=== PATIENT | female | born 1965 | race Caucasian/White ===

== ENCOUNTER → 2017-06-04 | Outpatient (CLI) | payer OTHER ==
--- NOTE | 2017-06-04 18:11 | XR ---
EXAMINATION TYPE: XR knee complete LT DATE OF EXAM: 06/04/2017 COMPARISON: NONE HISTORY: Foot pain TECHNIQUE: 3 views FINDINGS: I see no fracture nor dislocation. Joint spaces are normal. There is minor spurring of the patella. There is no sign of knee joint effusion. IMPRESSION: Mild spurring. Otherwise negative left knee exam.
--- NOTE | 2017-06-04 18:13 | XR ---
EXAMINATION TYPE: XR ankle complete LT DATE OF EXAM: 06/04/2017 COMPARISON: NONE HISTORY: Ankle pain TECHNIQUE: 3 views FINDINGS: I see no fracture nor dislocation. Ankle mortise is anatomic. Joint spaces are normal. IMPRESSION: Negative left ankle exam
--- NOTE | 2017-06-04 18:14 | XR ---
EXAMINATION TYPE: XR foot complete LT DATE OF EXAM: 06/04/2017 COMPARISON: NONE HISTORY: Pain TECHNIQUE: 3 views FINDINGS: I see no fracture nor dislocation. Metatarsals are intact. There are no erosions. Joint spa angelina are fairly normal. IMPRESSION: Negative left foot exam
== END | disposition home or self-care (01) ==
LOC: RADXRMAIN 17:18
PROVIDERS: ATTEND Family Medicine
DX: M77.9 Enthesopathy, unspecified (principal); S90.02XA Contusion of left ankle, initial encounter

== ENCOUNTER → 2018-12-23 | Outpatient (CLI) | payer OTHER ==
[2018-12-23 11:03] LABS: ALT 19 U/L (9-52); AST 20 U/L (14-36); African American GFR (CKD) >90 (>60 ml/min/1.73 sqM); Albumin 4.3 g/dL (3.5-5.0); Alkaline Phosphatase 75 U/L (38-126); Anion Gap 8 mmol/L; Blood Urea Nitrogen 12 mg/dL (7-17); Calcium 9.7 mg/dL (8.4-10.2); Carbon Dioxide 27 mmol/L (22-30); Chloride 106 mmol/L (98-107); Glucose 92 mg/dL (74-99); Potassium 4.8 mmol/L (3.5-5.1); Sodium 141 mmol/L (137-145); Total Bilirubin 0.5 mg/dL (0.2-1.3)
[2018-12-23 11:04] LABS: Appearance,Urine Clear (Clear); Bilirubin,Urine Negative (Negative); Blood,Urine Negative (Negative); Color,Urine Light Yellow; Glucose,Urine (UA) Negative (Negative); Ketones,Urine Negative (Negative); Leukocyte Esterase,Urine Negative (Negative); Nitrite,Urine Negative (Negative); Protein,Urine Negative (Negative); Specific Gravity,Urine 1.003 (1.001-1.035); Urobilinogen,Urine <2.0 mg/dL (<2.0)
[2018-12-23 11:07] LABS: INR 0.9 (<1.2); Partial Thromboplastin Time 25.6 sec (22.0-30.0); Prothrombin Time 9.7 sec (9.0-12.0)
[2018-12-23 11:09] LABS: HCT 48.6 % (34.0-46.0); HGB 15.7 gm/dL (11.4-16.0); MCH 30.1 pg (25.0-35.0); MCHC 32.4 g/dL (31.0-37.0); Mean Platelet Volume 10.9; Platelet Count 186 k/uL (150-450); RBC 5.22 m/uL (3.80-5.40); RDW 14.6 % (11.5-15.5)
== END | disposition home or self-care (01) ==
LOC: LABPAT 09:55
PROVIDERS: ATTEND Orthopaedic Surgery
DX: Z01.812 Encounter for preprocedural laboratory examination (principal); Z01.818 Encounter for other preprocedural examination; M17.11 Unilateral primary osteoarthritis, right knee
CPT/HCPCS: 36415; 80053; 81003; 85027; 85610; 85730; 87070; 93005

== ENCOUNTER 2019-01-06 12:12 | Day surgery (SDC) | payer OTHER ==
[~2019-01-06 12:12] MED LIST: DEXAMETHASONE SOD PHOSPHATE 10 MG/ML 1 ML VIAL IV ONE; GABAPENTIN 300 MG CAP PO ONE; HYDROmorphone 0.5 MG/0.5 ML SYRINGE IVP PRN; LIDOCAINE 1% 20 ML VIAL (10MG/ML) FOR IV START INTRADERMA PRN; MELOXICAM 7.5 MG TAB PO ONE; MIDAZOLAM 2 MG/2 ML VIAL IV PRN; ONDANSETRON 4 MG/2 ML VIAL IVP ONE; SCOPOLAMINE 1.5MG/72HR PATCH TRANSDERM ONE; TRANEXAMIC ACID 1,000 MG in SODIUM CHLORIDE 0.9% 100 ML IVPB ONE
[2019-01-06] MEDS: LACTATED RINGERS 1,000 ML IV SCH (13:07)
[2019-01-06] MEDS ORDERED: MIDAZOLAM (PF) 2 MG/2 ML VIAL IVP ONE (13:26)
[2019-01-06] MEDS ORDERED: HYDROcodone/APAP 5-325MG 1 EACH TAB PO PRN (13:34)
[2019-01-06] MEDS ORDERED: DIAZEPAM 5 MG TAB PO PRN (13:34)
[2019-01-06] MEDS ORDERED: ONDANSETRON 4 MG/2 ML VIAL IVP PRN (13:34)
[2019-01-06] MEDS ORDERED: NA PHOS,M-B/NA PHOS,DI-BA 133 ML ENEMA RECTAL PRN (13:34)
[2019-01-06] MEDS ORDERED: BISACODYL 10 MG SUPP RECTAL PRN (13:34)
[2019-01-06] MEDS ORDERED: MAGNESIUM HYDROXIDE 2,400 MG/10 ML CUP PO PRN (13:34)
[2019-01-06] MEDS ORDERED: HYDROmorphone 0.5 MG/0.5 ML SYRINGE IVP PRN ×2 (13:34)
[2019-01-06] MEDS ORDERED: hydrOXYzine PAMOATE 25 MG CAP PO PRN (13:34)
[2019-01-06] MEDS ORDERED: HYDROmorphone 1 MG/ML 1 ML SYRINGE IVP PRN (13:34)
[2019-01-06] MEDS ORDERED: NALOXONE 0.4 MG/ML 1 ML VIAL IV PRN ×2 (13:34→15:25)
[2019-01-06] MEDS ORDERED: ACETAMINOPHEN TAB 500 MG TAB PO ONE (13:46)
[2019-01-06] MEDS ORDERED: TRANEXAMIC ACID 1,000 MG/10 ML VIAL ONE (13:50)
[2019-01-06] MEDS ORDERED: PROPOFOL 10 MG/ML 20 ML VIAL IV ONE (13:50)
[2019-01-06] MEDS ORDERED: MIDAZOLAM 2 MG/2 ML VIAL ONE (13:50)
[2019-01-06] MEDS ORDERED: PHENYLEPHRINE-0.9% NACL SYG 1 MG/10 ML SYRINGE ONE (13:50)
[2019-01-06] MEDS ORDERED: fentaNYL (PF) 50 MCG/ML 2 ML AMP ONE (13:50)
[2019-01-06] MEDS ORDERED: SODIUM CHLORIDE 0.9% 100 ML BAG ONE (13:50)
[2019-01-06] MEDS ORDERED: ePHEDrine SULFATE/0.9% NACL/PF 50 MG/5 ML SYRINGE IV ONE (13:50)
[2019-01-06] MEDS: ROPIVACAINE 246.25 MG, EPINEPHrine 0.5 MG, KETOROLAC 30 MG, cloNIDine HCL/PF 80 MCG, WA... MISCELLANE ONE ×10 (14:26→14:58)
[2019-01-06] MEDS ORDERED: ceFAZolin 3,000 MG in SODIUM CHLORIDE 0.9% IRRIGATIO 3,000 ML IRRIGATION ONE (14:26)
--- NOTE | 2019-01-06 15:09 | P.OP ---
Date of Procedure: 01/06/19 Preoperative Diagnosis: Severe osteoarthritis right knee Postoperative Diagnosis: Severe osteoarthritis right knee Procedure(s) Performed: Right total knee arthroplasty with Visionaire patient specific knee guides Implants: Avery and Nephew Journey II CR Oxinium cruciate retaining femoral component size 5, right Avery [employer] Nephew Journey right nonporous tibial baseplate size 3 Avery [employer] Nephew Journey II, XLPE Deep Dished articular insert, size 9 mm, Size 3- 4 right Avery [employer]hew Journey BCS resurfacing oval patellar component, 29 mm All components were cemented using Palacos R bone cement. Visionaire patient specific guides The articulation is Oxinium on polyethylene. Anesthesia: spinal Surgeon: Fam Amezquita Hand Cigar Making Supervisor #1: Karmen Palacio Estimated Blood Loss (ml): 50 Pathology: other (Bone cartilage) Condition: stable Disposition: PACU Indications for Procedure: After failure of conservative treatment we discussed the surgical and nonsurgical treatment options at length. Patient wishes to proceed with a total knee arthroplasty. Complications specific to this procedure were discussed at length, including but not limited to infection, bleeding, stiffness, and nerve injury. Patient is aware of all these complications and informed consent was obtained Operative Findings: The operative findings are consistent with severe osteoarthritis of the right knee Description of Procedure: Patient was seen in the preoperative area consent was reviewed and operative site was marked with a skin marker. An adductor canal pain catheter was placed by anesthesia in the preoperative area. Patient was then brought to the operating room and given preoperative antibiotics intravenously. A spinal anesthetic was administered by the anesthesia department. A tourniquet was placed on the upper thigh and the lower extremity was prepped and draped in usual sterile fashion. A gram of transexamic acid was given. A universal timeout was then performed which confirmed the patient's name, surgical site, ALLERGIES, and consent. The lower extremity was then exsanguinated and tourniquet was inflated to 250 mmHg. A standard and anterior midline approach to the knee was performed. The skin and subcutaneous tissue was dissected down to the patellar tendon. A medial parapatellar arthrotomy was then performed. The knee was then extended, the patellar was everted, and the knee was again flexed. Anterior horns of both menisci were excised, and a release was performed to the posterior medial aspect of the knee. On gross visual inspection, there was complete loss of articular cartilage in the medial and patellofemoral joint spaces. There was also significant cartilage damage in the lateral compartment. There were multiple periarticular osteophytes. The patient specific guide was placed on the distal femur, and pinned in place. Using the patient specific guide, the distal femoral cut was performed. The cutting block was then removed and the cut was checked for flatness. The appropriate 5-in-1 cutting block was then pinned in place through the holes that were drilled through the patient specific guide. The anterior condyles were cut without notching. The posterior and chamfer cuts were performed while protecting the collateral ligaments. The cutting block was then removed. Attention was then directed to the tibia. The remaining ACL was removed with a Ronguer, and the tibia was then gently subluxed forward with a large bent knee retractor. Any remaining menisci was excised. The posterior lateral corner was cauterized in order to cauterize the lateral geniculate artery. The patient specific guide for the tibia was then placed and was held in place with pins. Pinholes were then placed for rotation of the tibial component as well. Proximal tibia was then cut and sized. Next trials were then placed with the appropriate-sized insert. The knee was able to fully extend and flex to 130 and was stable throughout all range of motion. The knee was then extended, patella everted. Patella was then measured, and then using an osteotomy guide, the patella was cut at the appropriate level. The patella was then measured and drilled and the patella trial was then placed. The knee was then taken through range of motion with the patella trial and the patella tracked normally. The knee was then extended patella trial was then removed and the patella was everted. Knee was then flexed and lug holes were drilled through the femoral trial and the femoral trial was then removed. The tibial was then exposed, and the tibial broach guide was then pinned in place after it was set for the appropriate rotation to allow for the most coverage without overhang. The tibia was then reamed and broached. The cut surfaces of bone were then irrigated with pulsatile lavage. The posterior structures were injected with the ropivacaine solution. The knee was also irrigated with Irrisept solution. The components were then opened, the cement was mixed, and the components were then cemented in place. The cement was allowed to harden with the knee in full extension. While the cement was hardening, the remaining soft tissues were then injected with a ropivacaine solution, which consisted of 246.25 mg of ropivacaine, 0.5 mg of epinephrine, 30 mg of Toradol, 80 g of clonidine, and 48.45 mL of sterile water, for a total of 100 mL of fluid injected. After the cemented hardened. The tourniquet was released, and hemostasis was obtained. A second gram of transexamic acid was given. The knee was again irrigated. The knee was again taken through range of motion and found to be stable throughout all range of motion of 0-130, and the patella tracked normally. The fascia was then closed with #2 strata fix suture. The subcutaneous tissue was closed with 3-0 Vicryl and 3-0 strata fix. Dermabond glue was used for the skin and placed with the knee in flexion. The patient was placed in a sterile silver dressing. Patient was then transferred to recovery room in stable condition. The health care legal assistant PATRICK Lopez was required due the complexity surgery and the need for a skilled campus administrative assistant. She assisted in positioning, draping, retraction, and closure of the wound.
--- NOTE | 2019-01-06 15:27 | P.ANPRN ---
Procedure Note - Anesthesia - Nerve Block Performed Right Adductor Canal Infusion Time Out Performed: Yes Date of Procedure: 01/06/19 Procedure Start Time: 13:25 Procedure Stop Time: 13:36 Location of Patient Procedure: PreOp Indication: Acute Post-Operative Pain, Analgesia, Requested by Surgeon Sedation Type: Sedate with meaningful contact maintained Preparation: Sterile Prep, Sterile Dressing Position: Supine Catheter: Indwelling Needle Types: Pajunk Needle Gauge: 20 Ultrasound used to visualize needle placement: Yes Ultrasound used to observe medication spread: Yes Injectate: 0.5% Ropivacaine (see comment for volume) (20cc) Blood Aspirated: No Pain Paresthesia on Injection Noted: No Resistance on Injection: Normal Image Stored and Saved: Yes
[2019-01-06] MEDS ORDERED: LACTATED RINGERS 1,000 ML IV ONE (15:31)
[2019-01-06] MEDS ORDERED: ROPIVACAINE 0.2%-NS ON-Q PUMP 1,090 MG, EMPTY PAIN BALL 1 EACH MISCELLANE PRN (15:56)
--- NOTE | 2019-01-06 16:24 | XR ---
EXAMINATION TYPE: XR knee limited RT DATE OF EXAM: 01/06/2019 CLINICAL HISTORY: Postoperative evaluation Two views of the right knee are submitted. Identified are changes of total knee arthroplasty with femoral and tibial components appearing well seated. Postsurgical soft tissue changes are noted. Alignment is anatomic.
[2019-01-06 17:27] VITALS: BMI 28.3
[2019-01-06] MEDS: SODIUM CHLORIDE 0.9% 1,000 ML IV SCH (17:31)
[2019-01-06] MEDS: ASPIRIN 325 MG TAB PO SCH (20:48)
[2019-01-06] MEDS: HYDROcodone/APAP 5-325MG 1 EACH TAB PO PRN (20:50)
[2019-01-06] MEDS ORDERED: SENNOSIDES-DOCUSATE SODIUM 1 EACH TAB PO SCH (21:00)
[2019-01-07] MEDS: HYDROcodone/APAP 5-325MG 1 EACH TAB PO PRN (05:17)
[2019-01-07] MEDS: SODIUM CHLORIDE 0.9% 1,000 ML IV SCH (05:24)
[2019-01-07] MEDS: LACTATED RINGERS 1,000 ML IV SCH (05:45)
[2019-01-07 07:09] VITALS: BP 107/70; PULSE 53; RESP 16; TEMP 97.7
[2019-01-07] MEDS: ASPIRIN 325 MG TAB PO SCH (07:14)
[2019-01-07 07:31] LABS: Basophils % (A) 0 %; Eosinophils % (A) 0 %; HCT 43.7 % (34.0-46.0); HGB 14.2 gm/dL (11.4-16.0); Lymphocytes # (A) 2.4 k/uL (1.0-4.8); Lymphocytes % (A) 14 %; MCH 30.2 pg (25.0-35.0); MCHC 32.5 g/dL (31.0-37.0); MCV 92.9 fL (80.0-100.0); Mean Platelet Volume 9.8; Monocytes # (A) 0.8 k/uL (0-1.0); Monocytes % (A) 5 %; Neutrophils # (A) 13.5 k/uL (1.3-7.7); Neutrophils % (A) 80 %; Platelet Count 161 k/uL (150-450); RBC 4.71 m/uL (3.80-5.40); RDW 12.7 % (11.5-15.5); WBC 16.8 k/uL (3.8-10.6)
--- NOTE | 2019-01-07 07:43 | P.PN ---
Progress Note - Text Progress Note Date: 01/07/19 POD 1 right TKR, doing well. pain on the back of the knee, VAS 3/10. able to ambulate. Dressing was resecured this morning. no erythem or fluctuance, no parasthesia reported. will likely be d/c home today.
--- NOTE | 2019-01-07 08:12 | P.DS ---
Providers Expected date of discharge: 01/07/19 Attending physician: Fam Amezquita Consults: 01/06/19 13:34 Consult Physician Routine Consulting Provider: Mel Buitrago Consult Reason/Comments: medical management Do you want consulting provider notified?: Yes Primary care physician: Jimmy [place] - Discharge Diagnosis(es) (1) Primary localized osteoarthritis of right knee Current Visit: Yes Status: Acute (2) Status post right knee replacement Current Visit: Yes Status: Acute Hospital Course: This is a pleasant 53-year-old female last seen in our office with complaints of right knee pain. Patient has known history of degenerative arthritis of the right knee and presented to discuss options. After discussion and consideration, patient elected to proceed with a total knee arthroplasty of the right knee. The patient was seen preoperatively and medically cleared for surgery by her primary care physician. The patient was admitted to [facility] and underwent right total knee arthroplasty on 01/06/[address] Fam Amezquita. The procedure was performed without complications or sequelae. The patient has done well postoperatively. The patient was seen and evaluated at bedside today and denies any new complai nts. Pain is reasonably controlled. Dressing is clean dry and intact. Incision looks fine with no erythema or active drainage. Calf is soft and nontender. The patient has full foot and ankle motion without difficulty. Patient's right lower extremity is neurovascular intact. Patient is orthopedically stable for discharge to home today. Pertinent Studies: Laboratory Tests 01/07/19 06:51 WBC 16.8 H RBC 4.71 Hgb 14.2 Hct 43.7 Neutrophils # 13.5 H Patient Condition at Discharge: Stable Plan - Discharge Summary Discharge Rx Participant: Yes New Discharge Prescriptions: New Aspirin 325 mg PO BID #60 tab Sennosides [Senokot] 1 tab PO BID #60 tablet HYDROcodone/APAP 7.5-325MG [[place] 7.5-325] 1 - 2 tab PO Q4-6H PRN #50 tab PRN Reason: Pain No Action clonazePAM [KlonoPIN] 1 mg PO BID@1500,2100 clonazePAM [KlonoPIN] 0.5 mg PO DAILY@0700 Fluticasone Nasal [place] [Flonase Nasal [place]] 2 spray EA NOSTRIL BID PRN PRN Reason: Allergy Symptoms Sertraline [Zoloft] 50 mg PO BID@0700,1500 Omeprazole [PriLOSEC] 20 mg PO DAILY Hydrochlorothiazide 25 mg PO DAILY Levothyroxine Sodium [Synthroid] 75 mcg PO DAILY Cholecalciferol (Vitamin D3) [Vitamin D3] 2,000 unit PO DAILY Acetaminophen [Tylenol Extra Strength] 500 mg PO DIRECTED PRN PRN Reason: Pain Discharge Medication List Fluticasone Nasal [place] [Flonase Nasal [place]] 2 spray EA NOSTRIL BID PRN 01/02/16 [History] Sertraline [Zoloft] 50 mg PO BID@0700,1500 01/02/16 [History] clonazePAM [KlonoPIN] 0.5 mg PO DAILY@0700 01/02/16 [History] clonazePAM [KlonoPIN] 1 mg PO BID@1500,2100 01/02/16 [History] Acetaminophen [Tylenol Extra Strength] 500 mg PO DIRECTED PRN 01/02/19 [History] Cholecalciferol (Vitamin D3) [Vitamin D3] 2,000 unit PO DAILY 01/02/19 [History] Hydrochlorothiazide 25 mg PO DAILY 01/02/19 [History] Levothyroxine Sodium [Synthroid] 75 mcg PO DAILY 01/02/19 [History] Omeprazole [PriLOSEC] 20 mg PO DAILY 01/02/19 [History] Aspirin 325 mg PO BID #60 tab 01/06/19 [Rx] Sennosides [Senokot] 1 tab PO BID #60 tablet 01/06/19 [Rx] HYDROcodone/APAP 7.5-325MG [[place] 7.5-325] 1 - 2 tab PO Q4-6H PRN #50 tab 01/07/19 [Rx] Follow up Appointment(s)/Referral(s): Jimmy Coronel MD [Primary Care Provider] - 1 Week Fam Amezquita DO [Doctor of Osteopathic Medicine] - 2 Weeks Ambulatory/Diagnostic Orders: Continuous Passive Motion (CPM) Machine [DME.AMB1] Time Frame: 3 Weeks, Location: None Selected Activity/Diet/Wound Care/Special Instructions: Weightbearing as tolerated with a walker. CPM 5-6h daily. Leave dressing intact. May be removed by home care nurse or by patient in 10 days. May shower with dressing on. Recommend use of compression stockings daily for at least 2 weeks during the day to help prevent swelling and blood clots. May remove at night before sleeping. Please follow up with [facility] and call with any questions or concerns, . Discharge Disposition: HOME WITH HOME HEALTH SERVICES
[2019-01-07] MEDS ORDERED: MELOXICAM 7.5 MG TAB PO SCH (09:00)
== END 2019-01-07 13:58 | disposition home health service (06) ==
LOC: OR 12:12 → 4SSUR 16:27 → OR 01-07 13:58
PROVIDERS: ATTEND Orthopaedic Surgery
DX: M17.0 Bilateral primary osteoarthritis of knee (principal); M25.761 Osteophyte, right knee; I10 Essential (primary) hypertension; E07.9 Disorder of thyroid, unspecified; K21.9 Gastro-esophageal reflux disease without esophagitis; F17.210 Nicotine dependence, cigarettes, uncomplicated; F32.9 Major depressive disorder, single episode, unspecified; F41.9 Anxiety disorder, unspecified; Z90.710 Acquired absence of both cervix and uterus; Z79.1 Long term (current) use of non-steroidal anti-inflammatories (NSAID); Z79.890 Hormone replacement therapy; Z79.899 Other long term (current) drug therapy; Z91.048 Other nonmedicinal substance allergy status
CPT/HCPCS: 97161; 64448; 76942; 85025; 88300; 73560; 27447; C1713; C1776; J2250 ×2; J0171; J1100; J0690 ×3; J2405; J3010; J1885; J2795 ×2; J2370; J2704; J0735

== ENCOUNTER → 2021-11-07 | Outpatient (CLI) | payer OTHER ==
--- NOTE | 2021-11-08 19:43 | MM ---
Reason for Exam: Screening (asymptomatic). Last mammogram was performed 1 year(s) and 3 month(s) ago. Patient History: Menarche at age 13. First Full-Term at age 27. Left ovary removed at age 45. Right ovary removed at age 45. Hysterectomy at age 45. Postmenopausal. Maternal aunt had breast cancer, right, at or over age 50. Risk Values: Allison 5 year model risk: 1.3%. NCI Lifetime model risk: 8.0%. Prior Study Comparison: 04/25/2001 Bilateral Screening Mammogram, [facility]. 05/15/2001 Right Special View Mammogram, [facility]. 11/12/2017 Bilateral MG 3D screening mammo w/cad, [facility]. 09/01/2020 Bilateral MG screening mammo w CAD - 2, [facility]. Tissue Density: The breast tissue is heterogeneously dense. This may lower the sensitivity of mammography. Findings: Analyzed By CAD. Solitary benign oil cyst calcification on the right redemonstrated. There is no suspicious group of microcalcifications or new suspicious mass in either breast. Overall Assessment: Negative, BI-RAD 1 Management: Screening Mammogram of both breasts in 1 year. 1. Patient should continue monthly self breast exams. 2. A clinical breast exam by your physician is recommended on an annual basis. 3. This exam should not preclude additional follow-up of suspicious palpable abnormalities. Electronically signed and approved by: Jb Sheffield M.D. Radiologist
== END | disposition home or self-care (01) ==
LOC: RADMAMWWP 08:45
PROVIDERS: ATTEND Family Medicine
DX: Z12.31 Encounter for screening mammogram for malignant neoplasm of breast (principal)
CPT/HCPCS: 77067

== ENCOUNTER 2024-02-10 13:15 | Emergency (ER) | payer OTHER ==
--- NOTE | 2024-02-10 13:39 | ED ---
Lower Extremity Injury HPI - General Source: patient, RN notes reviewed Mode of arrival: ambulatory Limitations: no limitations <Jennifer Alvarado - Last Filed: 02/10/24 13:47> <Terry Inman - Last Filed: 02/10/24 15:11> - General Chief Complaint: Extremity Injury, Lower Stated Complaint: fall,knee pain Time Seen by Provider: 02/10/24 13:35 - History of Present Illness Initial Comments: Quick Note: This is a 58 year old female who presents to the emergency department for a fall. She slipped in the kitchen this morning and injured her right leg. Currently has pain over the right knee and right foot. She is still able to ambulate. Denies hitting her head. (Jennifer Alvarado) 58 yo female presenting with right knee and right second toe injury. Patient had slipped in her kitchen on a greasy floor. There was no head or neck trauma. Main complaint is right second toe pain. (Terry Inman) - Related Data Home Medications Medication Instructions Recorded Confirmed Fluticasone Nasal [place] [Flonase 2 spray EA NOSTRIL BID PRN 01/02/16 01/06/19 Nasal [place]] Sertraline [Zoloft] 50 mg PO BID@0700,1500 01/02/16 01/06/19 clonazePAM [KlonoPIN] 0.5 mg PO DAILY@0700 01/02/16 01/06/19 clonazePAM [KlonoPIN] 1 mg PO BID@1500,2100 01/02/16 01/06/19 Acetaminophen [Tylenol Extra 500 mg PO DIRECTED PRN 01/02/19 01/06/19 Strength] Cholecalciferol (Vitamin D3) 2,000 unit PO DAILY 01/02/19 01/06/19 [Vitamin D3] Levothyroxine Sodium [Synthroid] 75 mcg PO DAILY 01/02/19 01/06/19 Omeprazole [PriLOSEC] 20 mg PO DAILY 01/02/19 01/06/19 hydroCHLOROthiazide 25 mg PO DAILY 01/02/19 01/06/19 Previous Rx's Medication Instructions Recorded Aspirin 325 mg PO BID #60 tab 01/06/19 Sennosides [Senokot] 1 tab PO BID #60 tablet 01/06/19 HYDROcodone/APAP 7.5-325MG [[place] 1 - 2 tab PO Q4-6H PRN #50 tab 01/07/19 7.5-325] Allergies Allergy/AdvReac Type Severity Reaction Status Date / Time adhesive Allergy Unknown blisters, Uncoded 02/10/24 13:35 possibly caused by tegaderm clear dressing orange dye Allergy Unknown Rash/Hives Uncoded 02/10/24 13:35 Review of Systems ROS Other: All systems not noted in ROS Statement are negative. <Jennifer Alvarado - Last Filed: 02/10/24 13:47> ROS Other: All systems not noted in ROS Statement are negative. <Terry Inman - Last Filed: 02/10/24 15:11> ROS Statement: Those systems with pertinent positive or pertinent negative responses have been documented in the HPI. Past Medical History Past Medical History: Thyroid Disorder History of Any Multi-Drug Resistant Organisms: None Reported Past Surgical History: Joint Replacement, Orthopedic Surgery Additional Past Surgical History / Comment(s): thryroidectomy Past Psychological History: Anxiety Smoking Status: Current every day smoker Past Alcohol Use History: None Reported Past Drug Use History: None Reported <Jennifer Alvarado - Last Filed: 02/10/24 13:47> General Exam Limitations: no limitations <Jennifer Alvarado - Last Filed: 02/10/24 13:47> General appearance: alert, in no apparent distress Head exam: Present: atraumatic, normocephalic Eye exam: Present: normal appearance, PERRL ENT exam: Present: normal exam Neck exam: Present: normal inspection. Absent: tenderness, meningismus Respiratory exam: Present: normal lung sounds bilaterally. Absent: respiratory distress, wheezes Cardiovascular Exam: Present: regular rate, normal rhythm GI/Abdominal exam: Present: soft. Absent: distended, tenderness, guarding Extremities exam: Present: other (Ecchymosis at the base of the second toe right foot, suspect DIP dislocation) <Terry Inman - Last Filed: 02/10/24 15:11> - General Exam Comments Initial Comments: Visual Physical Exam Vital signs reviewed General: Well-appearing, nontoxic, no acute distress. Head: Normocephalic, atraumatic Eyes: PERRLA, EOMI ENT: Airway patent Chest: Nonlabored breathing Skin: No visual rash, normal skin tone Neuro: Alert and oriented 3 Musculoskeletal: No gross abnormalities (Jennifer Alvarado) Course Vital Signs 02/10/24 13:33 Temperature 98.4 F Pulse Rate 63 Respiratory 20 Rate O2 Sat by Pulse 97 Oximetry Procedures - Nerve Block Consent Obtained: verbal consent Local Anesthetic Used: Lidocaine 1% Amount of anesthesia used: 3 Side: right Nerve Blocks: digital Procedure Successful: Yes Complications: none Patient Tolerated Procedure: well - Orthopedic Joint Reduction Joint #1 Consent Obtained: verbal consent Side: right Joint Reduction Location: toe Analgesia: digital block Local Anesthetic Used: Lidocaine 1% Amount of Anesthetic Used (mLs): 3 Technique Used: traction/counter-traction Post-Reduction Neuro Exam: intact Post-Reduction Vascular Exam: intact Post Reduction X-Ray Obtained: No Patient Tolerated Procedure: well <Terry Inman - Last Filed: 02/10/24 15:11> Medical Decision Making <Jennifer Alvarado - Last Filed: 02/10/24 13:47> <Terry Inman - Last Filed: 02/10/24 15:11> - Medical Decision Making I performed the QuickNote portion of this chart. Signed Jennifer Alvarado PA-C. (Jennifer Alvarado) Was pt. sent in by a medical professional or institution (PATRICK Fuller, SILVERING DEPARTMENT SUPERVISOR, urgent care, hospital, or group home...) When possible be specific @ -No Did you speak to anyone other than the patient for history (EMS, parent, family, police, friend...)? What history was obtained from this source @ -No Did you review nursing and triage notes (agree or disagree)? Why? @ -I reviewed and agree with nursing and triage notes Were old charts reviewed (outside hosp., previous admission, EMS record, old EKG, old radiological studies, urgent care reports/EKG's, group home records)? Report findings @ -No old charts were reviewed Differential Musculoskeletal Muscular strain, contusion, ligament sprain, fracture, arthritis, septic arthritis, bursitis, cellulitis, muscle spasm, nerve compression, DVT, arterial occlusion, herpes zoster, electrolyte abnormality, tumor.... This is not meant to be in all inclusive list EKG interpreted by me (3pts min.). @ -As above X-rays interpreted by me (1pt min.). @X-ray of the right knee is negative for displaced fracture, x-ray of the right foot shows dislocation of the distal phalanx second toe. CT interpreted by me (1pt min.). @ -None done U/S interpreted by me (1pt. min.). @ -None done What testing was considered but not performed or refused? (CT, X-rays, U/S, labs)? Why? @ -None What meds were considered but not given or refused? Why? @ -None Did you discuss the management of the patient with other professionals (professionals i.e. , PA, SILVERING DEPARTMENT SUPERVISOR, lab, RT, psych nurse, social media content specialist, promotion officer, teacher, medical information officer, heel caser)? Give summary @ -No Was smoking cessation discussed for >3mins.? @ -No Was critical care preformed (if so, how long)? @ -No Were there social determinants of health that impacted care today? How? (Homelessness, low income, unemployed, alcoholism, drug addiction, t ransportation, low edu. Level, literacy, decrease access to med. care, longterm, rehab)? @ -No Was there de-escalation of care discussed even if they declined (Discuss DNR or withdrawal of care, Hospice)? DNR status @ -No What co-morbidities impacted this encounter? (DM, HTN, Smoking, COPD, CAD, Cancer, CVA, ARF, Chemo, Hep., AIDS, mental health diagnosis, sleep apnea, morbid obesity)? @ -None Was patient admitted / discharged? Hospital course, mention meds given and route, prescriptions, significant lab abnormalities, going to OR and other pertinent info. @ -[58-year-old female with right foot injury, right knee injury, x-ray of the right knee is negative for displaced fracture or dislocation, x-ray of the right foot shows a subtle dislocation of the distal phalanx second toe right foot. This is reduced after digital block. Patient stable for discharge at this time. Undiagnosed new problem with uncertain prognosis? @ -No Drug Therapy requiring intensive monitoring for toxicity (Heparin, Nitro, Insulin, Cardizem)? @ -No Were any procedures done? @Yes, digital block, toe dislocation reduction Diagnosis/symptom? @ -[Toe dislocation Acute, or Chronic, or Acute on Chronic? @ -Acute Uncomplicated (without systemic symptoms) or Complicated (systemic symptoms)? @ -Default Side effects of treatment? @ -No Exacerbation, Progression, or Severe Exacerbation? @ -No Poses a threat to life or bodily function? How? (Chest pain, [place], [place], pneumonia, PE, COPD, DKA, ARF, appy, cholecystitis, CVA, Diverticulitis, Homicidal, Suicidal, threat to staff... and all critical care pts) @ -No (Terry Inman) Disposition <Jennifer Alvarado - Last Filed: 02/10/24 13:47> Is patient prescribed a controlled substance at d/c from ED?: No Time of Disposition: 15:06 <Terry Inman - Last Filed: 02/10/24 15:11> Clinical Impression: Dislocation of toe Disposition: HOME SELF-CARE Condition: Good Instructions (If sedation given, give patient instructions): Finger Dislocation (ED) Additional Instructions: Please ice and elevate the right foot. Referrals: Laura Mathews MD [Primary Care Provider] - 1-2 days
--- NOTE | 2024-02-10 14:18 | XR ---
EXAMINATION TYPE: XR foot complete RT DATE OF EXAM: 02/10/2024 1:52 PM COMPARISON: None. CLINICAL INDICATION: Female, 58 years old with history of Fall,Pain TECHNIQUE: XR foot complete RT view(s) obtained. FINDINGS: No acute fracture or dislocation evident. Joint spaces are preserved. Soft tissues appear normal. Follow-up exams can be performed 7-10 days from acute trauma for continued pain IMPRESSION: 1. No acute osseous abnormality right foot [facility], , 02/10/2024 2:15 PM
--- NOTE | 2024-02-10 14:24 | XR ---
EXAMINATION TYPE: XR knee complete RT DATE OF EXAM: 02/10/2024 1:52 PM COMPARISON: 01/06/2019 CLINICAL INDICATION: Female, 58 years old with history of Fall, pain TECHNIQUE: XR knee complete RT view(s) obtained. FINDINGS: Femoral and tibial components are present from a knee prosthesis. No joint effusion is evident. No ac [place] fractures or dislocations evident. Findings are stable over the interval. IMPRESSION: 1. No acute osseous abnormality right knee. Right knee prosthesis remains in position. [facility], , 02/10/2024 2:22 PM
[2024-02-10] MEDS: LIDOCAINE 1% INJ 10MG/ML (20 ML MDV) SQ ONE (15:10)
[2024-02-10 15:14] VITALS: BP 126/74; PULSE 66; RESP 18; TEMP 98
== END 2024-02-10 15:14 | disposition home or self-care (01) ==
LOC: EC 13:15
DX: S93.104A Unspecified dislocation of right toe(s), initial encounter (principal); F17.200 Nicotine dependence, unspecified, uncomplicated; Z91.048 Other nonmedicinal substance allergy status; W01.0XXA Fall on same level from slipping, tripping and stumbling without subsequent striking against object, initial encounter
CPT/HCPCS: 73562; 73630; 99283; 64450; 28660; J2003

== ENCOUNTER 2024-06-15 04:57 | Emergency (ER) | payer OTHER ==
[2024-06-15 05:04] VITALS: TEMP 97.6
--- NOTE | 2024-06-15 05:08 | ED ---
Abdominal Pain HPI - General Chief Complaint: Abdominal Pain Stated Complaint: abd pain Time Seen by Provider: 06/15/24 05:05 Source: patient, RN notes reviewed, old records reviewed Mode of arrival: ambulatory Limitations: no limitations - History of Present Illness Initial Comments: This is a 59-year-old female to the ER for evaluation today. This patient presents today for evaluation in regards to abdominal pain epigastric suprapubic abdominal pain significant, patient is restless due to cause of this abdominal pain. States that started around 10 AM or 10 PM and has been persistent with nausea no vomiting, history of gallbladder surgery hysterectomy MD Complaint: abdominal pain -: days(s) Location: periumbilical, epigastric, suprapubic Radiation: epigastric, suprapubic Migration to: periumbilical, suprapubic Severity: moderate Quality: cramping, stabbing Consistency: constant Improves With: nothing Worsens With: nothing Associated Symptoms: nausea Treatments Prior to Arrival: other (0) - Related Data Home Medications Medication Instructions Recorded Confirmed Fluticasone Nasal [place] [Flonase 2 spray EA NOSTRIL BID PRN 01/02/16 01/06/19 Nasal [place]] Sertraline [Zoloft] 50 mg PO BID@0700,1500 01/02/16 01/06/19 clonazePAM [KlonoPIN] 0.5 mg PO DAILY@0700 01/02/16 01/06/19 clonazePAM [KlonoPIN] 1 mg PO BID@1500,2100 01/02/16 01/06/19 Acetaminophen [Tylenol Extra 500 mg PO DIRECTED PRN 01/02/19 01/06/19 Strength] Cholecalciferol (Vitamin D3) 2,000 unit PO DAILY 01/02/19 01/06/19 [Vitamin D3] Levothyroxine Sodium [Synthroid] 75 mcg PO DAILY 01/02/19 01/06/19 Omeprazole [PriLOSEC] 20 mg PO DAILY 01/02/19 01/06/19 hydroCHLOROthiazide 25 mg PO DAILY 01/02/19 01/06/19 Previous Rx's Medication Instructions Recorded Aspirin 325 mg PO BID #60 tab 01/06/19 Sennosides [Senokot] 1 tab PO BID #60 tablet 01/06/19 HYDROcodone/APAP 7.5-325MG [[place] 1 - 2 tab PO Q4-6H PRN #50 tab 01/07/19 7.5-325] Allergies Allergy/AdvReac Type Severity Reaction Status Date / Time adhesive Allergy Unknown blisters, Uncoded 06/15/24 05:01 possibly caused by tegaderm clear dressing orange dye Allergy Unknown Rash/Hives Uncoded 06/15/24 05:01 Review of Systems ROS Statement: Those systems with pertinent positive or pertinent negative responses have been documented in the HPI. ROS Other: All systems not noted in ROS Statement are negative. Past Medical History Past Medical History: Thyroid Disorder History of Any Multi-Drug Resistant Organisms: None Reported Past Surgical History: Cholecystectomy, Hysterectomy, Joint Replacement, Orthopedic Surgery Additional Past Surgical History / Comment(s): thryroidectomy Past Psychological History: Anxiety Smoking Status: Current every day smoker Past Alcohol Use History: None Reported Past Drug Use History: None Reported General Exam Limitations: no limitations General appearance: alert, in no apparent distress Head exam: Present: atraumatic, normocephalic, normal inspection Eye exam: Present: normal appearance, PERRL, EOMI. Absent: scleral icterus, conjunctival injection, periorbital swelling ENT exam: Present: normal exam, mucous membranes moist Neck exam: Present: normal inspection. Absent: tenderness, meningismus, lymphadenopathy Respiratory exam: Present: normal lung sounds bilaterally. Absent: respiratory distress, wheezes, rales, rhonchi, stridor Cardiovascular Exam: Present: regular rate, normal rhythm, normal heart sounds. Absent: systolic murmur, diastolic murmur, rubs, gallop, clicks GI/Abdominal exam: Present: soft, distended, tenderness, normal bowel sounds. Absent: guarding, rebound, rigid Extremities exam: Present: normal inspection, full ROM, normal capillary refill. Absent: tenderness, pedal edema, joint swelling, calf tenderness Back exam: Present: normal inspection Neurological exam: Present: alert, oriented X3, CN II-XII intact Psychiatric exam: Present: normal affect, normal mood Skin exam: Present: warm, dry, intact, normal color. Absent: rash Course Vital Signs 06/15/24 06/15/24 05:01 07:13 Temperature 97.6 F Pulse Rate 77 76 Respiratory 24 18 Rate Blood Pressure 151/78 156/85 O2 Sat by Pulse 98 96 Oximetry - Reevaluation(s) Reevaluation #1: 06/15/24 05:57 Medical records reviewed Reevaluation #2: Patient symptoms resolved here in the ER Reevaluation #3: Patient informed of results and questions answered Reevaluation #4: Was pt. sent in by a medical professional or institution (PATRICK Fuller, HVAC PROJECT ENGINEER, urgent care, hospital, or [facility]...) When possible be specific @ -no Did you speak to anyone other than the patient for history (EMS, parent, family, police, friend...)? What history was obtained from this source @ -no Did you review nursing and triage notes (agree or disagree)? Why? @ -agree Are old charts reviewed (outside hosp., previous admission, EMS record, old EKG, old radiological studies, urgent care reports/EKG's, [facility] records)? Report findings @ -yes Differential Diagnosis (chest pain, altered mental status, abdominal pain women, abdominal pain men, vaginal bleeding, weakness, fever, dyspnea, syncope, headache, dizziness, GI bleed, back pain, seizure, CVA, palpatations, mental health, musculoskeletal)? @ -prior EKG interpreted by me (3pts min.). @ -no X-rays interpreted by me (1pt min.). @ -no CT interpreted by me (1pt min.). @ -yes negative for acute disease U/S interpreted by me (1pt. min.). @ -no What testing was considered but not performed or refused? (CT, X-rays, U/S, labs)? Why? @ -none What meds were considered but not given or refused? Why? @ -none Did you discuss the management of the patient with other professionals (professionals i.e. PATRICK Fuller, HVAC PROJECT ENGINEER, lab, RT, psych nurse, group social worker, orthodontic lab technician, teacher, motorized squad commanding officer, lead case manager)? Give summary @ -no Was smoking cessation discussed for >3mins.? @ -no Was critical care preformed (if so, how long)? @ -no Were there social determinants of health that impacted care today? How? (Homelessness, low income, unemployed, alcoholism, drug addiction, transportation, low edu. Level, literacy, decrease access to med. care, snf, rehab)? @ -none Was there de-escalation of care discussed even if they declined (Discuss DNR or withdrawal of care, Hospice)? DNR status @ -no What co-morbidities impacted this encounter? (DM, HTN, Smoking, COPD, CAD, Cancer, CVA, ARF, Chemo, Hep., AIDS, mental health diagnosis, sleep apnea, morbid obesity)? @ -none Was patient admitted / discharged? Hospital course, mention meds given and route, prescriptions, significant lab abnormalities, going to OR and other pertinent info. @ -59 female to ER with nonspecific abdominal pain CT scan negative lab testing normal patient can be discharged home Discharge Undiagnosed new problem with uncertain prognosis? @ -no Drug Therapy requiring intensive monitoring for toxicity (Heparin, Nitro, Insulin, Cardizem)? @ -no Were any procedures done? @ -no Diagnosis/symptom? @ -Abdominal pain Acute, or Chronic, or Acute on Chronic? @ -Acute Uncomplicated (without systemic symptoms) or Complicated (systemic symptoms)? @ -Complicated Side effects of treatment? @ -no Exacerbation, Progression, or Severe Exacerbation? @ -exacerbation Poses a threat to life or bodily function? How? (Chest pain, [place], [place], pneumonia, PE, COPD, DKA, ARF, appy, cholecystitis, CVA, Diverticulitis, Homicidal, Suicidal, threat to staff... and all critical care pts) @ -no Reevaluation #5: Differential Abdominal Pain Women: Appendicitis, Cholecystitis, diverticulosis, ischemic bowel, pancreatitis, hepatitis, UTI, gastroenteritis, AAA, incarcerated hernia, bowel obstruction, constipation, inflammatory bowel, hepatitis, peptic ulcer disease, splenic infarction, perforated viscus, vulvitis, ovarian torsion, PID, kidney stone, placenta abruption, this is not meant to be an all-inclusive list Medical Decision Making - Medical Decision Making 59 female nonspecific abdominal pain normal lab testing normal CT scan here in the ER patient can be discharged home - Lab Data Result diagrams: 06/15/24 05:17 06/15/24 05:17 Lab Results 06/15/24 06/15/24 06/15/24 Range/Units 05:17 05:17 05:17 WBC 13.6 H (3.8-10.6) k/uL RBC 5.40 (3.80-5.40) m/uL Hgb 15.7 (11.4-16.0) gm/dL Hct 50.0 H (34.0-46.0) % MCV 92.7 (80.0-100.0) fL MCH 29.0 (25.0-35.0) pg MCHC 31.3 (31.0-37.0) g/dL RDW 13.5 (11.5-15.5) % Plt Count 181 (150-450) k/uL MPV 11.5 Neutrophils % 80 % Lymphocytes % 15 % Monocytes % 3 % Eosinophils % 1 % Basophils % 0 % Neutrophils # 10.8 H (1.3-7.7) k/uL Lymphocytes # 2.1 (1.0-4.8) k/uL Monocytes # 0.4 (0-1.0) k/uL Eosinophils # 0.2 (0-0.7) k/uL Basophils # 0.0 (0-0.2) k/uL Manual Slide Review Performed PT 10.1 (10.0-12.5) sec INR 0.9 (<1.2) APTT 24.0 (22.0-30.0) sec Sodium 138 (137-145) mmol/L Potassium 3.9 (3.5-5.1) mmol/L Chloride 106 (98-107) mmol/L Carbon Dioxide 23 (22-30) mmol/L Anion Gap 9 mmol/L BUN 11 (7-17) mg/dL Creatinine 0.55 (0.52-1.04) mg/dL Est GFR (CKD-EPI)AfAm >90 (>60 ml/min/1.73 sqM) Est GFR (CKD-EPI)NonAf >90 (>60 ml/min/1.73 sqM) Glucose 129 H (74-99) mg/dL Plasma Lactic Acid Sam (0.7-2.0) mmol/L Calcium 9.4 (8.4-10.2) mg/dL Total Bilirubin 0.6 (0.2-1.3) mg/dL AST 21 (14-36) U/L ALT 14 (4-34) U/L Alkaline Phosphatase 81 (38-126) U/L Total Protein 6.9 (6.3-8.2) g/dL Albumin 4.3 (3.5-5.0) g/dL Amylase 66 (30-110) U/L Lipase 216 (23-300) U/L Urine Color Urine Appearance (Clear) Urine pH (5.0-8.0) Ur Specific [place] (1.001-1.035) Urine Protein (Negative) Urine Glucose (UA) (Negative) Urine Ketones (Negative) Urine Blood (Negative) Urine Nitrite (Negative) Urine Bilirubin (Negative) Urine Urobilinogen (<2.0) mg/dL Ur Leukocyte Esterase (Negative) 06/15/24 06/15/24 Range/Units 05:17 06:51 WBC (3.8-10.6) k/uL RBC (3.80-5.40) m/uL Hgb (11.4-16.0) gm/dL Hct (34.0-46.0) % MCV (80.0-100.0) fL MCH (25.0-35.0) pg MCHC (31.0-37.0) g/dL RDW (11.5-15.5) % Plt Count (150-450) k/uL MPV Neutrophils % % Lymphocytes % % Monocytes % % Eosinophils % % Basophils % % Neutrophils # (1.3-7.7) k/uL Lymphocytes # (1.0-4.8) k/uL Monocytes # (0-1.0) k/uL Eosinophils # (0-0.7) k/uL Basophils # (0-0.2) k/uL Manual Slide Review PT (10.0-12.5) sec INR (<1.2) APTT (22.0-30.0) sec Sodium (137-145) mmol/L Potassium (3.5-5.1) mmol/L Chloride (98-107) mmol/L Carbon Dioxide (22-30) mmol/L Anion Gap mmol/L BUN (7-17) mg/dL Creatinine (0.52-1.04) mg/dL Est GFR (CKD-EPI)AfAm (>60 ml/min/1.73 sqM) Est GFR (CKD-EPI)NonAf (>60 ml/min/1.73 sqM) Glucose (74-99) mg/dL Plasma Lactic Acid Sam 1.1 (0.7-2.0) mmol/L Calcium (8.4-10.2) mg/dL Total Bilirubin (0.2-1.3) mg/dL AST (14-36) U/L ALT (4-34) U/L Alkaline Phosphatase (38-126) U/L Total Protein (6.3-8.2) g/dL Albumin (3.5-5.0) g/dL Amylase (30-110) U/L Lipase (23-300) U/L Urine Color Colorless Urine Appearance Clear (Clear) Urine pH 6.0 (5.0-8.0) Ur Specific [place] >1.050 H (1.001-1.035) Urine Protein Negative (Negative) Urine Glucose (UA) Negative (Negative) Urine Ketones Trace H (Negative) Urine Blood Negative (Negative) Urine Nitrite Negative (Negative) Urine Bilirubin Negative (Negative) Urine Urobilinogen <2.0 (<2.0) mg/dL Ur Leukocyte Esterase Negative (Negative) - Radiology Data Radiology results: report reviewed (CT abdomen pelvis negative for acute disease), image reviewed Disposition Clinical Impression: Abdominal pain Disposition: HOME SELF-CARE Condition: Fair Instructions (If sedation given, give patient instructions): Abdominal Pain (ED) Is patient prescribed a controlled substance at d/c from ED?: No Referrals: Laura Mathews MD [Primary Care Provider] - 1-2 days Time of Disposition: 07:00
[2024-06-15] MEDS: MORPHINE SULFATE 4 MG/ML SYRINGE IVP STA (05:22)
[2024-06-15] MEDS: ONDANSETRON 4 MG/2 ML VIAL IVP STA (05:22)
[2024-06-15] MEDS: SODIUM CHLORIDE 0.9% 1,000 ML IV ONE (05:22)
[2024-06-15 05:30] LABS: Basophils % (A) 0 %; Eosinophils # (A) 0.2 k/uL (0-0.7); Eosinophils % (A) 1 %; HGB 15.7 gm/dL (11.4-16.0); Lymphocytes # (A) 2.1 k/uL (1.0-4.8); Lymphocytes % (A) 15 %; MCHC 31.3 g/dL (31.0-37.0); MCV 92.7 fL (80.0-100.0); Mean Platelet Volume 11.5; Monocytes # (A) 0.4 k/uL (0-1.0); Monocytes % (A) 3 %; Neutrophils # (A) 10.8 k/uL (1.3-7.7); Neutrophils % (A) 80 %; RDW 13.5 % (11.5-15.5); WBC 13.6 k/uL (3.8-10.6)
[2024-06-15 05:44] LABS: INR 0.9 (<1.2); Prothrombin Time 10.1 sec (10.0-12.5)
[2024-06-15 06:20] LABS: ALT 14 U/L (4-34); AST 21 U/L (14-36); African American GFR (CKD) >90 (>60 ml/min/1.73 sqM); Albumin 4.3 g/dL (3.5-5.0); Alkaline Phosphatase 81 U/L (38-126); Amylase 66 U/L (30-110); Anion Gap 9 mmol/L; Blood Urea Nitrogen 11 mg/dL (7-17); Calcium 9.4 mg/dL (8.4-10.2); Carbon Dioxide 23 mmol/L (22-30); Chloride 106 mmol/L (98-107); Glucose 129 mg/dL (74-99); Lipase 216 U/L (23-300); Non-African American GFR(CKD) >90 (>60 ml/min/1.73 sqM); Potassium 3.9 mmol/L (3.5-5.1); Sodium 138 mmol/L (137-145); Total Bilirubin 0.6 mg/dL (0.2-1.3); Total Protein 6.9 g/dL (6.3-8.2)
--- NOTE | 2024-06-15 06:37 | CT ---
EXAMINATION TYPE: CT abdomen pelvis w con DATE OF EXAM: 06/15/2024 COMPARISON: NONE CLINICAL INDICATION: Female, 59 years old with history of pain, Pt presents with abdominal pain since 2200 last night. with nausea, TECHNIQUE: CT scan of the abdomen and pelvis is performed with IV Contrast, patient injected with 100 mL of Isov ue 300., (none if empty) Oral contrast used: without Oral Contrast (none if empty) CT DLP: 979.9 mGycm, Automated exposure control for dose reduction was used. FINDINGS: LUNG BASES: No significant abnormality is appreciated. LIVER/GB: Cholecystectomy clips are present. Likely displaced clip posterior to the liver axial image 36 is noted. PANCREAS: No significant abnormality is seen. SPLEEN: No significant abnormality is seen. ADRENALS: No significant abnormality is seen. KIDNEYS: No significant abnormality is seen. BOWEL: Small-sized hiatal hernia. No abnormal small or large bowel dilatation. UTERUS/ADNEXA:. Uterus is surgically absent or markedly atrophic in appearance. Occasional tiny scatt ered pelvic phleboliths is seen. LYMPH NODES: No greater than 1cm abdominal or pelvic lymph nodes are appreciated. OSSEOUS STRUCTURES: Mild to moderate disc space narrowing and vacuum disc phenomenon at L3-L4 and L4- L5 levels. OTHER: Mild calcified plaque of the aorta extends into branch vessels. IMPRESSION: No bowel obstruction. No significant acute finding is seen to account for patient's clini ronn symptoms. [facility], , 06/15/2024 6:34 AM
[2024-06-15] MEDS: HYDROmorphone 0.5 MG/0.5 ML SYRINGE IVP STA (07:12)
[2024-06-15] MEDS: ONDANSETRON 4 MG ODT STARTER PACK 2 TAB BTL PO STA (07:13)
[2024-06-15] MEDS: LORazepam 2 MG/ML INJ IV STA (07:13)
[2024-06-15] MEDS: ACET/COD 300 MG/30 MG STARTER PACK 6 TAB BTL PO STA (07:13)
[2024-06-15 07:14] LABS: Appearance,Urine Clear (Clear); Bilirubin,Urine Negative (Negative); Blood,Urine Negative (Negative); Color,Urine Colorless; Glucose,Urine (UA) Negative (Negative); Ketones,Urine Trace (Negative); Leukocyte Esterase,Urine Negative (Negative); Nitrite,Urine Negative (Negative); Protein,Urine Negative (Negative); Urobilinogen,Urine <2.0 mg/dL (<2.0)
[2024-06-15 07:17] VITALS: BP 156/85; PULSE 76; RESP 18
[2024-06-15 07:17] LABS: Specific Gravity,Urine >1.050 (1.001-1.035)
[2024-06-15 08:33] LABS: Platelet Count 181 k/uL (150-450)
== END 2024-06-15 08:04 | disposition home or self-care (01) ==
LOC: EC 04:57
DX: R10.13 Epigastric pain (principal); F17.200 Nicotine dependence, unspecified, uncomplicated; Z91.09 Other allergy status, other than to drugs and biological substances; Z88.8 Allergy status to other drugs, medicaments and biological substances
CPT/HCPCS: 36415; 80053; 82150; 83605; 83690; 85025; 85610; 85730; 81003; 74177; 99284; 96374; 96375; 96361; J2060; J2270; J2405; S0119; J1171; Q9967